=== PATIENT | female | born 1970 | race Caucasian/White ===

== ENCOUNTER 2019-11-12 08:08 | Emergency (ER) | payer OTHER ==
[~2019-11-12] VITALS: Ht 160 cm; Wt 41.5 kg
[2019-11-12 08:15] VITALS: BP 108/73
[2019-11-12] MEDS ORDERED: ALBU18HF2 INH (09:04)
== END 2019-11-12 09:22 | disposition home or self-care (01) ==
LOC: ER 08:09
DX: K04.7 Periapical abscess without sinus (principal); K02.9 Dental caries, unspecified; J45.909 Unspecified asthma, uncomplicated; I49.8 Other specified cardiac arrhythmias; F17.200 Nicotine dependence, unspecified, uncomplicated
CPT/HCPCS: 93005; 99283

== ENCOUNTER 2020-02-29 20:31 | Emergency (ER) | payer OTHER ==
[~2020-02-29] VITALS: Ht 157.5 cm; Wt 45.5 kg
[~2020-02-29 20:31] MED LIST: ALBU18HF2 INH
[2020-02-29 21:17] LABS: BASOPHILS # (AUTO) 0.2 X10'3 (0-0.2); BASOPHILS % (AUTO) 1.2 % (0-1); EOSINOPHILS # (AUTO) 0.5 X10'3 (0-0.9); EOSINOPHILS % (AUTO) 3.4 % (0-6); HEMOGLOBIN 11.8 g/dl (12.0-16.0); LYMPHOCYTES # (AUTO) 2.2 X10'3 (1.1-4.8); LYMPHOCYTES % (AUTO) 15.6 % (21-51); MEAN CORPUSCULAR HGB CONC 32.9 g/dL (33.0-36.5); MEAN CORPUSCULAR VOLUME 91.1 FL (78-98); MEAN PLATELET VOLUME 6.7 FL (7.4-10.4); MONOCYTES # (AUTO) 1.1 X10'3 (0-0.9); MONOCYTES % (AUTO) 8.3 % (2-12); NEUTROPHILS # (AUTO) 9.8 X10'3 (1.8-7.7); NEUTROPHILS % (AUTO) 71.5 % (42-75); PLATELET COUNT 364 X10'3 (140-440); RED BLOOD COUNT 3.95 X10'6 (4.20-5.60); RED CELL DISTRIBUTION WIDTH 13.7 % (11.5-14.5); WHITE BLOOD COUNT 13.8 X10'3 (4.5-11.0)
[2020-02-29 21:33] LABS: ALANINE AMINOTRANSFERASE 20 U/L (12-78); ALBUMIN 3.4 G/DL (3.4-5.0); ALBUMIN/GLOBULIN RATIO 0.9 (1.1-1.5); ALKALINE PHOSPHATASE 65 IU/L (46-116); ANION GAP 8 (8-16); ASPARTATE AMINO TRANSFERASE 19 U/L (10-37); BILIRUBIN,TOTAL 0.4 MG/DL (0.1-1.0); BLOOD UREA NITROGEN 7 MG/DL (7-18); BUN/CREATININE RATIO 8.1 (6.6-38.0); CALCIUM 8.7 MG/DL (8.5-10.1); CHLORIDE 106 MMOL/L (99-107); CREATININE 0.86 MG/DL (0.40-0.90); GLUCOSE 109 MG/DL (70-104); POTASSIUM 3.8 MMOL/L (3.5-5.1); SODIUM 140 MMOL/L (135-145); TOTAL CARBON DIOXIDE 26.3 MMOL/L (24-32); eGFR 70 ML/MIN
[2020-02-29] MEDS ORDERED: methylPREDNISolone sod succ 125mg/2ml vial IV ONE (23:15)
[2020-02-29] MEDS ORDERED: montelukast 10mg tablet PO SCH (23:15)
[2020-02-29] MEDS ORDERED: ipratropium/albuterol 3ml nebule NEB ONE (23:15)
[2020-02-29] MEDS ORDERED: PRED20TA PO (23:54)
[2020-02-29] MEDS ORDERED: ALBU6.7H9 INH (23:59)
[2020-03-01 00:13] VITALS: BP 101/76
== END 2020-03-01 00:14 | disposition home or self-care (01) ==
LOC: ER 20:33
DX: J45.909 Unspecified asthma, uncomplicated (principal); R05 Cough; Z20.828 Contact with and (suspected) exposure to other viral communicable diseases; Z79.899 Other long term (current) drug therapy
CPT/HCPCS: 36415; 71045; 80053; 85025; 94640; 96374; 99284; J2930; 94760

== ENCOUNTER 2020-06-24 15:54 | Emergency (ER) | payer BC ==
[~2020-06-24] VITALS: Ht 157.5 cm; Wt 43.2 kg
[~2020-06-24 15:54] MED LIST changes: +ALBU6.7H9 INH
[2020-06-24 16:00] VITALS: BP 115/71
== END 2020-06-24 19:03 | disposition left against medical advice (07) ==
LOC: ER 15:55
DX: R51.9 Headache, unspecified (principal); Z53.21 Procedure and treatment not carried out due to patient leaving prior to being seen by health care provider

== ENCOUNTER 2020-06-29 05:12 | Emergency (ER) | payer BC ==
[~2020-06-29] VITALS: Ht 157.5 cm; Wt 43.2 kg
[2020-06-29 05:20] VITALS: BP 130/73
[2020-06-29] MEDS ORDERED: SULF1TAB49 PO (06:13)
[2020-06-29] MEDS ORDERED: sulfamethoxazole/trimethoprim DS (800/160mg) tablet PO ONE (06:15)
== END 2020-06-29 06:55 | disposition home or self-care (01) ==
LOC: ER 05:13
DX: L03.211 Cellulitis of face (principal); J45.909 Unspecified asthma, uncomplicated; F17.200 Nicotine dependence, unspecified, uncomplicated; Z79.2 Long term (current) use of antibiotics; Z79.899 Other long term (current) drug therapy
CPT/HCPCS: 99283

== ENCOUNTER 2020-10-19 22:43 | Emergency (ER) | payer BC ==
[~2020-10-19] VITALS: Ht 157.5 cm; Wt 43.2 kg
[2020-10-19 23:05] VITALS: BP 104/69
[2020-10-20] MEDS ORDERED: HYDR-3686 PO (00:48)
[2020-10-20] MEDS ORDERED: SULF1TAB49 PO (00:48)
[2020-10-20] MEDS ORDERED: BETA15CR4 TOP (00:48)
[2020-10-20] MEDS ORDERED: PRED20TA PO (00:48)
[2020-10-20] MEDS ORDERED: sulfamethoxazole/trimethoprim DS (800/160mg) tablet PO ONE (00:50)
[2020-10-20] MEDS ORDERED: dexamethasone 4mg tablet PO ONE (00:50)
== END 2020-10-20 01:06 | disposition home or self-care (01) ==
LOC: ER 22:44 → EEVIPCON 22:44 → ER 10-20 01:06
DX: L03.211 Cellulitis of face (principal); J45.909 Unspecified asthma, uncomplicated; Z79.899 Other long term (current) drug therapy
CPT/HCPCS: 99283

== ENCOUNTER 2020-12-19 15:06 | Outpatient (CLI) | payer BC ==
[~2020-12-19 15:06] MED LIST changes: +BETA15CR4 TOP
[2020-12-19 15:45] LABS: BASOPHILS # (AUTO) 0.1 X10'3 (0-0.2); BASOPHILS % (AUTO) 0.9 % (0-1); EOSINOPHILS # (AUTO) 0.5 X10'3 (0-0.9); EOSINOPHILS % (AUTO) 4.4 % (0-6); HEMATOCRIT 38.5 % (35.0-45.0); HEMOGLOBIN 12.7 g/dl (12.0-16.0); LYMPHOCYTES # (AUTO) 2.1 X10'3 (1.1-4.8); LYMPHOCYTES % (AUTO) 17.8 % (21-51); MEAN CORPUSCULAR HEMOGLOBIN 29.8 PG (27.0-31.0); MEAN CORPUSCULAR HGB CONC 32.9 g/dL (33.0-36.5); MEAN CORPUSCULAR VOLUME 90.5 FL (78-98); MONOCYTES # (AUTO) 1.1 X10'3 (0-0.9); MONOCYTES % (AUTO) 9.2 % (2-12); NEUTROPHILS # (AUTO) 8.1 X10'3 (1.8-7.7); NEUTROPHILS % (AUTO) 67.7 % (42-75); PLATELET COUNT 396 X10'3 (140-440); RED BLOOD COUNT 4.25 X10'6 (4.20-5.60); RED CELL DISTRIBUTION WIDTH 14.3 % (11.5-14.5); WHITE BLOOD COUNT 11.9 X10'3 (4.5-11.0)
[2020-12-19 15:48] LABS: CLARITY,URINE SLIGHTLY CLOUDY (Clear); COLOR,URINE YELLOW (Yellow); GLUCOSE, URINE NEGATIVE (Neg); KETONES,URINE TRACE mg/dl (Neg); LEUKOCYTE ESTERASE ,URINE TRACE (Neg); NITRITES, URINE NEGATIVE (Neg); OCCULT BLOOD,URINE NEGATIVE (Neg); PROTEIN,URINE NEGATIVE (Neg); UROBILINOGEN,URINE 0.2 E.U/dL (0.2-1.0)
[2020-12-19 16:08] LABS: CHLORIDE 101 MMOL/L (99-107); GLUCOSE 97 MG/DL (70-104); POTASSIUM 3.6 MMOL/L (3.5-5.1); SODIUM 140 MMOL/L (135-145); TOTAL CARBON DIOXIDE 29.3 MMOL/L (24-32)
[2020-12-19 16:09] LABS: ALANINE AMINOTRANSFERASE 25 U/L (12-78); ALBUMIN 3.6 G/DL (3.4-5.0); ALKALINE PHOSPHATASE 72 IU/L (46-116); ANION GAP 10 (8-16); ASPARTATE AMINO TRANSFERASE 26 U/L (10-37); BILIRUBIN,TOTAL 0.3 MG/DL (0.1-1.0); BLOOD UREA NITROGEN 13 MG/DL (7-18); BUN/CREATININE RATIO 15.1 (6.6-38.0); CALCIUM 9.4 MG/DL (8.5-10.1); CHOL/HDL RATIO 2.4 (0.00-4.99); CHOLESTEROL 246 MG/DL (0-200); CREATININE 0.86 MG/DL (0.40-0.90); HDL CHOLESTEROL 104 MG/DL (35-60); LDL CHOLESTEROL 127 MG/DL (50-100); TOTAL PROTEIN 7.1 G/DL (6.4-8.2); TRIGLYCERIDES 65 MG/DL (20-135); eGFR 70 ML/MIN
[2020-12-19 16:20] LABS: BACTERIA,URINE 1+ /HPF (Neg); RBC,URINE 0-2 /HPF (0-2); SQUAMOUS EPITHELIAL CELL,UR MODERATE /LPF (FEW); UA COLLECTION TYPE CLN CATCH MIDSTREAM; WBC,URINE 0-4 /HPF (0-4)
== END 2020-12-19 23:59 | disposition home or self-care (01) ==
LOC: LAB 15:06
PROVIDERS: ATTEND Family Medicine
DX: Z00.00 Encounter for general adult medical examination without abnormal findings (principal)
CPT/HCPCS: 36415; 80053; 80061; 81001; 84439; 84443; 85025

== ENCOUNTER 2021-02-07 15:57 | Emergency (ER) | payer BC ==
[~2021-02-07] VITALS: Ht 165.1 cm; Wt 110.0 kg
[2021-02-07] MEDS ORDERED: normal saline 1000ml 1,000 ML IV ONE (16:50)
[2021-02-07 17:48] VITALS: BP 88/59
[2021-02-07 17:53] LABS: BASOPHILS # (AUTO) 0.2 X10'3 (0-0.2); EOSINOPHILS # (AUTO) 0.4 X10'3 (0-0.9); LYMPHOCYTES # (AUTO) 1.9 X10'3 (1.1-4.8); WHITE BLOOD COUNT 7.3 X10'3 (4.5-11.0)
[2021-02-07 17:55] LABS: BASOPHILS % (AUTO) 2.9 % (0-1); EOSINOPHILS % (AUTO) 5.6 % (0-6); HEMATOCRIT 34.7 % (35.0-45.0); LYMPHOCYTES % (AUTO) 26.3 % (21-51); MEAN CORPUSCULAR HGB CONC 34.5 g/dL (33.0-36.5); MEAN CORPUSCULAR VOLUME 89.9 FL (78-98); MONOCYTES # (AUTO) 0.8 X10'3 (0-0.9); MONOCYTES % (AUTO) 10.7 % (2-12); NEUTROPHILS % (AUTO) 54.5 % (42-75); PLATELET COUNT 386 X10'3 (140-440); RED BLOOD COUNT 3.86 X10'6 (4.20-5.60); RED CELL DISTRIBUTION WIDTH 14.7 % (11.5-14.5)
[2021-02-07 17:57] LABS: CLARITY,URINE CLEAR (Clear); COLOR,URINE YELLOW (Yellow); GLUCOSE, URINE NEGATIVE (Neg); KETONES,URINE TRACE mg/dl (Neg); LEUKOCYTE ESTERASE ,URINE NEGATIVE (Neg); NITRITES, URINE NEGATIVE (Neg); OCCULT BLOOD,URINE NEGATIVE (Neg); PROTEIN,URINE NEGATIVE (Neg); UROBILINOGEN,URINE 0.2 E.U/dL (0.2-1.0)
[2021-02-07 18:00] LABS: UA COLLECTION TYPE CLN CATCH MIDSTREAM
[2021-02-07 18:08] LABS: ALANINE AMINOTRANSFERASE 19 U/L (12-78); ALBUMIN 3.5 G/DL (3.4-5.0); ALBUMIN/GLOBULIN RATIO 1.1 (1.1-1.5); ALKALINE PHOSPHATASE 77 IU/L (46-116); ANION GAP 10 (8-16); ASPARTATE AMINO TRANSFERASE 20 U/L (10-37); BILIRUBIN,TOTAL 0.2 MG/DL (0.1-1.0); BLOOD UREA NITROGEN 6 MG/DL (7-18); CALCIUM 8.5 MG/DL (8.5-10.1); CHLORIDE 107 MMOL/L (99-107); CREATININE 0.86 MG/DL (0.40-0.90); GLUCOSE 94 MG/DL (70-104); POTASSIUM 3.8 MMOL/L (3.5-5.1); SODIUM 141 MMOL/L (135-145); TOTAL CARBON DIOXIDE 24.3 MMOL/L (24-32); TOTAL PROTEIN 6.7 G/DL (6.4-8.2); eGFR 70 ML/MIN
[2021-02-07 18:22] LABS: TOTAL CELLS COUNTED 100
[2021-02-07 18:25] LABS: BURR CELLS 1+; ELLIPTOCYTES 1+; PLATELET ESTIMATE NORMAL
== END 2021-02-07 19:17 | disposition home or self-care (01) ==
LOC: ER 15:58 → EEVIPCON 15:58 → ER 19:17
DX: E86.0 Dehydration (principal); R11.2 Nausea with vomiting, unspecified; R06.02 Shortness of breath; R51.9 Headache, unspecified; R42 Dizziness and giddiness; Z20.822 Contact with and (suspected) exposure to COVID-19; J45.909 Unspecified asthma, uncomplicated
CPT/HCPCS: 36415; 71045; 80053; 81003; 85007; 85025; 87635; 99284; C9803; J7030

== ENCOUNTER 2021-03-27 10:12 | Day surgery (SDC) | payer BC ==
[~2021-03-27] VITALS: Ht 157.5 cm; Wt 45.5 kg
[2021-03-27 10:35] VITALS: BP 125/37
[2021-03-27] MEDS ORDERED: fentaNYL/PF 50MCG/1 ML 2ML syringe ONE (10:43)
[2021-03-27] MEDS ORDERED: MIDAZolam 1 MG/ML 5ML VIAL ONE (10:43)
[2021-03-27] MEDS ORDERED: PLEC3TAB2 PO (11:26)
[2021-03-27] MEDS ORDERED: HYDR-3686 PO (11:26)
[2021-03-27] MEDS ORDERED: SENN25TA PO (11:26)
[2021-03-27] MEDS ORDERED: DIPH25CA83 PO (11:26)
[2021-03-27] MEDS ORDERED: MONT10TA32 PO (11:26)
[2021-03-27 12:26] VITALS: BP 89/63
[2021-03-27 12:36] VITALS: BP 88/64
[2021-03-27 12:46] VITALS: BP 86/61
[2021-03-27 12:56] VITALS: BP 83/56
== END 2021-03-27 12:57 | disposition home or self-care (01) ==
LOC: GI LAB 10:12
PROVIDERS: ATTEND Internal Medicine Gastroenterology
DX: K59.00 Constipation, unspecified (principal); K63.89 Other specified diseases of intestine; K64.8 Other hemorrhoids; J45.909 Unspecified asthma, uncomplicated; Z79.899 Other long term (current) drug therapy; F17.210 Nicotine dependence, cigarettes, uncomplicated
CPT/HCPCS: 45378; 99152; 99153; J2250; J3010; J7040; Z7512; A4620

== ENCOUNTER 2021-04-11 21:15 | Emergency (ER) | payer BC ==
[~2021-04-11] VITALS: Ht 157.5 cm; Wt 43.2 kg
[~2021-04-11 21:15] MED LIST changes: +DIPH25CA83 PO; +HYDR-3686 PO; +MONT10TA32 PO; +PLEC3TAB2 PO; +SENN25TA PO
[2021-04-11 21:24] VITALS: BP 90/65
== END 2021-04-11 22:40 | disposition home or self-care (01) ==
LOC: ER 21:15
DX: S61.212A Laceration without foreign body of right middle finger without damage to nail, initial encounter (principal); J45.909 Unspecified asthma, uncomplicated; Z79.899 Other long term (current) drug therapy; X58.XXXA Exposure to other specified factors, initial encounter; Y93.89 Activity, other specified; Y92.89 Other specified places as the place of occurrence of the external cause; Y99.8 Other external cause status
CPT/HCPCS: 99281

== ENCOUNTER 2021-07-25 17:24 | Emergency (ER) | payer OTHER ==
[~2021-07-25] VITALS: Ht 152.4 cm; Wt 43.0 kg
[~2021-07-25 17:24] MED LIST changes: +MONT-40 PO; -MONT10TA32 PO
[2021-07-25 17:35] VITALS: BP 95/65
[2021-07-25] MEDS ORDERED: PERM60CR19 TOP (19:14)
== END 2021-07-25 19:25 | disposition home or self-care (01) ==
LOC: ER 17:25
DX: L29.9 Pruritus, unspecified (principal); R21 Rash and other nonspecific skin eruption; J45.909 Unspecified asthma, uncomplicated; Z79.899 Other long term (current) drug therapy
CPT/HCPCS: 99283

== ENCOUNTER 2021-08-12 13:52 | Outpatient (CLI) | payer BC ==
[~2021-08-12 13:52] MED LIST changes: +PERM60CR19 TOP
[2021-08-12 14:44] LABS: CLARITY,URINE CLEAR (Clear); COLOR,URINE YELLOW (Yellow); EOSINOPHILS # (AUTO) 0.1 X10'3 (0-0.9); GLUCOSE, URINE NEGATIVE (Neg); HEMOGLOBIN 12.2 g/dl (12.0-16.0); KETONES,URINE NEGATIVE (Neg); LEUKOCYTE ESTERASE ,URINE NEGATIVE (Neg); LYMPHOCYTES # (AUTO) 1.6 X10'3 (1.1-4.8); NITRITES, URINE NEGATIVE (Neg); OCCULT BLOOD,URINE NEGATIVE (Neg); PROTEIN,URINE NEGATIVE (Neg); UROBILINOGEN,URINE 0.2 E.U/dL (0.2-1.0)
[2021-08-12 14:46] LABS: BASOPHILS # (AUTO) 0.1 X10'3 (0-0.2); BASOPHILS % (AUTO) 1.5 % (0-1); EOSINOPHILS % (AUTO) 2.1 % (0-6); HEMATOCRIT 36.7 % (35.0-45.0); MEAN CORPUSCULAR HEMOGLOBIN 30.6 PG (27.0-31.0); MEAN CORPUSCULAR HGB CONC 33.3 g/dL (33.0-36.5); MEAN PLATELET VOLUME 7.1 FL (7.4-10.4); MONOCYTES # (AUTO) 0.6 X10'3 (0-0.9); MONOCYTES % (AUTO) 8.2 % (2-12); NEUTROPHILS # (AUTO) 4.4 X10'3 (1.8-7.7); NEUTROPHILS % (AUTO) 64.2 % (42-75); PLATELET COUNT 418 X10'3 (140-440); RED BLOOD COUNT 3.99 X10'6 (4.20-5.60); RED CELL DISTRIBUTION WIDTH 14.4 % (11.5-14.5); WHITE BLOOD COUNT 6.8 X10'3 (4.5-11.0)
[2021-08-12 15:02] LABS: UA COLLECTION TYPE CLN CATCH MIDSTREAM
[2021-08-12 15:27] LABS: ALANINE AMINOTRANSFERASE 25 U/L (12-78); ALBUMIN 3.7 G/DL (3.4-5.0); ALBUMIN/GLOBULIN RATIO 1.2 (1.1-1.5); ALKALINE PHOSPHATASE 65 IU/L (46-116); ANION GAP 6 (8-16); ASPARTATE AMINO TRANSFERASE 20 U/L (10-37); BILIRUBIN,TOTAL 0.3 MG/DL (0.1-1.0); BLOOD UREA NITROGEN 4 MG/DL (7-18); BUN/CREATININE RATIO 5.6 (6.6-38.0); CALCIUM 8.9 MG/DL (8.5-10.1); CHLORIDE 105 MMOL/L (99-107); CHOL/HDL RATIO 2.2 (0.00-4.99); CHOLESTEROL 231 MG/DL (0-200); CREATININE 0.71 MG/DL (0.40-0.90); GLUCOSE 110 MG/DL (70-104); HDL CHOLESTEROL 103 MG/DL (35-60); LDL CHOLESTEROL 107 MG/DL (50-100); POTASSIUM 4.3 MMOL/L (3.5-5.1); SODIUM 139 MMOL/L (135-145); TOTAL CARBON DIOXIDE 27.6 MMOL/L (24-32); TOTAL PROTEIN 6.9 G/DL (6.4-8.2); TRIGLYCERIDES 34 MG/DL (20-135); eGFR 87 ML/MIN
== END 2021-08-12 23:59 | disposition home or self-care (01) ==
LOC: LAB 13:52
PROVIDERS: ATTEND Family Medicine
DX: Z13.220 Encounter for screening for lipoid disorders (principal); Z13.29 Encounter for screening for other suspected endocrine disorder; J44.9 Chronic obstructive pulmonary disease, unspecified
CPT/HCPCS: 36415; 80053; 80061; 81003; 82043; 83735; 84439; 84443; 85025

== ENCOUNTER 2021-09-09 09:24 | Outpatient (CLI) | payer BC ==
[~2021-09-09 09:24] MED LIST changes: -PERM60CR19 TOP; +iohexol 300mg/ml 100ml inj. ONE
== END 2021-09-09 23:59 | disposition home or self-care (01) ==
LOC: RAD 09:24
PROVIDERS: ATTEND Family Medicine
DX: K76.0 Fatty (change of) liver, not elsewhere classified (principal); K76.89 Other specified diseases of liver; I70.0 Atherosclerosis of aorta
CPT/HCPCS: 74177; Q9967

== ENCOUNTER 2021-09-09 09:34 | Outpatient (CLI) | payer BC ==
[~2021-09-09 09:34] MED LIST changes: -iohexol 300mg/ml 100ml inj. ONE
== END 2021-09-09 23:59 | disposition home or self-care (01) ==
LOC: LAB 09:34
PROVIDERS: ATTEND Family Medicine
DX: J43.9 Emphysema, unspecified (principal); R53.82 Chronic fatigue, unspecified; F17.200 Nicotine dependence, unspecified, uncomplicated
CPT/HCPCS: 36415; 71046; 86304

== ENCOUNTER 2021-12-16 20:33 | Emergency (ER) | payer BC ==
[~2021-12-16] VITALS: Ht 157.5 cm; Wt 36.4 kg
[2021-12-16 22:30] VITALS: BP 97/73
[2021-12-17 01:23] LABS: ALANINE AMINOTRANSFERASE 28 U/L (12-78); ALBUMIN 3.4 G/DL (3.4-5.0); ALBUMIN/GLOBULIN RATIO 1.1 (1.1-1.5); ALKALINE PHOSPHATASE 56 IU/L (46-116); ANION GAP 8 (8-16); ASPARTATE AMINO TRANSFERASE 29 U/L (10-37); BILIRUBIN,TOTAL 0.1 MG/DL (0.1-1.0); BLOOD UREA NITROGEN 11 MG/DL (7-18); BUN/CREATININE RATIO 15.5 (6.6-38.0); CALCIUM 8.1 MG/DL (8.5-10.1); CHLORIDE 107 MMOL/L (99-107); CREATININE 0.71 MG/DL (0.40-0.90); GLUCOSE 79 MG/DL (70-104); POTASSIUM 3.9 MMOL/L (3.5-5.1); SODIUM 142 MMOL/L (135-145); TOTAL CARBON DIOXIDE 27.3 MMOL/L (24-32); TOTAL PROTEIN 6.5 G/DL (6.4-8.2); eGFR 87 ML/MIN
[2021-12-17 01:25] LABS: BASOPHILS # (AUTO) 0.2 X10'3 (0-0.2); BASOPHILS % (AUTO) 2.3 % (0-1); EOSINOPHILS % (AUTO) 0.5 % (0-6); HEMOGLOBIN 11.2 g/dl (12.0-16.0); LYMPHOCYTES % (AUTO) 26.2 % (21-51); MEAN CORPUSCULAR HEMOGLOBIN 30.8 PG (27.0-31.0); MEAN CORPUSCULAR HGB CONC 32.9 g/dL (33.0-36.5); MEAN CORPUSCULAR VOLUME 93.6 FL (78-98); MEAN PLATELET VOLUME 6.3 FL (7.4-10.4); MONOCYTES # (AUTO) 0.4 X10'3 (0-0.9); MONOCYTES % (AUTO) 5.6 % (2-12); NEUTROPHILS # (AUTO) 4.9 X10'3 (1.8-7.7); NEUTROPHILS % (AUTO) 65.4 % (42-75); PLATELET COUNT 435 X10'3 (140-440); RED BLOOD COUNT 3.63 X10'6 (4.20-5.60); RED CELL DISTRIBUTION WIDTH 14.7 % (11.5-14.5); WHITE BLOOD COUNT 7.6 X10'3 (4.5-11.0)
[2021-12-17 01:28] LABS: ETHANOL 0.334 GM/DL (0.0-0.010)
== END 2021-12-17 00:55 | disposition home or self-care (01) ==
LOC: ER 20:33
DX: R07.89 Other chest pain (principal); Z20.822 Contact with and (suspected) exposure to COVID-19; R00.2 Palpitations; R06.02 Shortness of breath; R47.81 Slurred speech; R53.81 Other malaise; R50.9 Fever, unspecified; R51.9 Headache, unspecified; R19.7 Diarrhea, unspecified; R30.0 Dysuria; R11.2 Nausea with vomiting, unspecified; J45.909 Unspecified asthma, uncomplicated; Z72.89 Other problems related to lifestyle; Z86.19 Personal history of other infectious and parasitic diseases; Z79.899 Other long term (current) drug therapy
CPT/HCPCS: 36415; 71045; 80053; 80320; 84484; 85025; 87502; 87503; 87635; 93005; 99285; C9803

== ENCOUNTER 2022-01-27 13:30 | Outpatient (CLI) | payer BC ==
[2022-01-27 14:02] LABS: BASOPHILS # (AUTO) 0.1 X10'3 (0-0.2); BASOPHILS % (AUTO) 1.4 % (0-1); EOSINOPHILS % (AUTO) 0.7 % (0-6); HEMATOCRIT 32.2 % (35.0-45.0); LYMPHOCYTES % (AUTO) 18.4 % (21-51); MEAN CORPUSCULAR HGB CONC 34.3 g/dL (33.0-36.5); MEAN CORPUSCULAR VOLUME 93.5 FL (78-98); MEAN PLATELET VOLUME 7.1 FL (7.4-10.4); MONOCYTES # (AUTO) 0.3 X10'3 (0-0.9); MONOCYTES % (AUTO) 6.1 % (2-12); NEUTROPHILS # (AUTO) 4.1 X10'3 (1.8-7.7); NEUTROPHILS % (AUTO) 73.4 % (42-75); PLATELET COUNT 271 X10'3 (140-440); RED BLOOD COUNT 3.44 X10'6 (4.20-5.60); RED CELL DISTRIBUTION WIDTH 13.9 % (11.5-14.5); WHITE BLOOD COUNT 5.6 X10'3 (4.5-11.0)
[2022-01-27 14:21] LABS: CLARITY,URINE CLEAR (Clear); COLOR,URINE YELLOW (Yellow); GLUCOSE, URINE NEGATIVE (Neg); KETONES,URINE TRACE mg/dl (Neg); LEUKOCYTE ESTERASE ,URINE NEGATIVE (Neg); NITRITES, URINE NEGATIVE (Neg); OCCULT BLOOD,URINE NEGATIVE (Neg); PROTEIN,URINE NEGATIVE (Neg); UROBILINOGEN,URINE 0.2 E.U/dL (0.2-1.0)
[2022-01-27 14:24] LABS: UA COLLECTION TYPE CLN CATCH MIDSTREAM
[2022-01-27 14:26] LABS: ALANINE AMINOTRANSFERASE 44 U/L (12-78); ALBUMIN 3.4 G/DL (3.4-5.0); ALKALINE PHOSPHATASE 72 IU/L (46-116); ANION GAP 8 (8-16); ASPARTATE AMINO TRANSFERASE 41 U/L (10-37); BILIRUBIN,TOTAL 0.4 MG/DL (0.1-1.0); BLOOD UREA NITROGEN 5 MG/DL (7-18); BUN/CREATININE RATIO 7.8 (6.6-38.0); CALCIUM 8.4 MG/DL (8.5-10.1); CHLORIDE 94 MMOL/L (99-107); CHOLESTEROL 278 MG/DL (0-200); CREATININE 0.64 MG/DL (0.40-0.90); GLUCOSE 94 MG/DL (70-104); LDL CHOLESTEROL 73 MG/DL (50-100); MAGNESIUM 1.5 MG/DL (1.5-2.4); POTASSIUM 3.8 MMOL/L (3.5-5.1); SODIUM 126 MMOL/L (135-145); TOTAL CARBON DIOXIDE 24.3 MMOL/L (24-32); TOTAL PROTEIN 6.8 G/DL (6.4-8.2); TRIGLYCERIDES 50 MG/DL (20-135); eGFR > 90 ML/MIN
[2022-01-27 15:04] LABS: HDL CHOLESTEROL > 155 MG/DL (35-60)
== END 2022-01-27 23:59 | disposition home or self-care (01) ==
LOC: LAB 13:30
PROVIDERS: ATTEND Family Medicine
DX: Z13.29 Encounter for screening for other suspected endocrine disorder (principal); Z13.220 Encounter for screening for lipoid disorders; J44.9 Chronic obstructive pulmonary disease, unspecified
CPT/HCPCS: 36415; 80053; 80061; 81003; 82043; 83735; 84439; 84443; 85025

== ENCOUNTER 2022-07-23 20:21 | Emergency (ER) | payer BC ==
[~2022-07-23] VITALS: Ht 157.5 cm; Wt 40.0 kg
[~2022-07-23 20:21] MED LIST changes: +ALBU6.7H14 INH; -ALBU6.7H9 INH
[2022-07-23] MEDS ORDERED: normal saline 1000ml 1,000 ML IV ONE (22:05)
[2022-07-23 22:29] LABS: BASOPHILS # (AUTO) 0.2 X10'3 (0-0.2); BASOPHILS % (AUTO) 1.4 % (0-1); EOSINOPHILS # (AUTO) 0.2 X10'3 (0-0.9); EOSINOPHILS % (AUTO) 1.4 % (0-6); HEMATOCRIT 32.5 % (35.0-45.0); HEMOGLOBIN 10.8 g/dl (12.0-16.0); LYMPHOCYTES # (AUTO) 2.4 X10'3 (1.1-4.8); LYMPHOCYTES % (AUTO) 22.1 % (21-51); MEAN CORPUSCULAR HEMOGLOBIN 31.2 PG (27.0-31.0); MEAN CORPUSCULAR HGB CONC 33.2 g/dL (33.0-36.5); MEAN CORPUSCULAR VOLUME 93.8 FL (78-98); MEAN PLATELET VOLUME 6.6 FL (7.4-10.4); MONOCYTES # (AUTO) 1.1 X10'3 (0-0.9); MONOCYTES % (AUTO) 10.4 % (2-12); NEUTROPHILS % (AUTO) 64.7 % (42-75); PLATELET COUNT 263 X10'3 (140-440); RED BLOOD COUNT 3.46 X10'6 (4.20-5.60); RED CELL DISTRIBUTION WIDTH 14.8 % (11.5-14.5); WHITE BLOOD COUNT 10.9 X10'3 (4.5-11.0)
[2022-07-23 22:44] LABS: ALANINE AMINOTRANSFERASE 36 U/L (12-78); ALBUMIN 3.7 G/DL (3.4-5.0); ALBUMIN/GLOBULIN RATIO 1.4 (1.1-1.5); ALKALINE PHOSPHATASE 69 IU/L (46-116); ANION GAP 7 (8-16); ASPARTATE AMINO TRANSFERASE 45 U/L (10-37); BILIRUBIN,TOTAL 0.6 MG/DL (0.1-1.0); BLOOD UREA NITROGEN 8 MG/DL (7-18); BUN/CREATININE RATIO 9.6 (6.6-38.0); CHLORIDE 99 MMOL/L (99-107); CREATININE 0.83 MG/DL (0.40-0.90); GLUCOSE 130 MG/DL (70-104); LIPASE 174 U/L (73-393); POTASSIUM 3.1 MMOL/L (3.5-5.1); SODIUM 134 MMOL/L (135-145); TOTAL CARBON DIOXIDE 28.4 MMOL/L (24-32); TOTAL PROTEIN 6.4 G/DL (6.4-8.2); eGFR 72 ML/MIN
--- NOTE | 2022-07-23 23:00 | NUR ---
unable to obtain urine at this time.
[2022-07-24 00:12] LABS: URINE HCG NEGATIVE (NEG)
[2022-07-24 00:15] LABS: CLARITY,URINE CLEAR (Clear); COLOR,URINE YELLOW (Yellow); GLUCOSE, URINE NEGATIVE (Neg); KETONES,URINE NEGATIVE (Neg); LEUKOCYTE ESTERASE ,URINE NEGATIVE (Neg); NITRITES, URINE NEGATIVE (Neg); OCCULT BLOOD,URINE NEGATIVE (Neg); PROTEIN,URINE NEGATIVE (Neg); UROBILINOGEN,URINE 0.2 E.U/dL (0.2-1.0)
[2022-07-24 00:19] LABS: UA COLLECTION TYPE CLN CATCH MIDSTREAM
[2022-07-24] MEDS ORDERED: POTASSIUM BICARB 20meq eff tab 20 MEQ TABLET.EFF PO ONE (01:05)
[2022-07-24 01:11] LABS: ETHANOL < 0.010 GM/DL (0.0-0.010)
[2022-07-24 01:53] VITALS: BP 112/60
== END 2022-07-24 01:55 | disposition home or self-care (01) ==
LOC: ER 20:22 → EEVIPCON 20:22 → ER 07-24 01:55
DX: E87.6 Hypokalemia (principal); Z20.822 Contact with and (suspected) exposure to COVID-19; R11.2 Nausea with vomiting, unspecified; R42 Dizziness and giddiness; R19.7 Diarrhea, unspecified; J45.909 Unspecified asthma, uncomplicated; F41.9 Anxiety disorder, unspecified; Z86.2 Personal history of diseases of the blood and blood-forming organs and certain disorders involving the immune mechanism; Z72.89 Other problems related to lifestyle; Z79.899 Other long term (current) drug therapy
CPT/HCPCS: 36415; 80053; 80320; 81003; 81025; 83690; 85025; 87502; 87503; 87635; 93005; 96360; 96361; 99284; C9803; J7030

== ENCOUNTER 2022-09-12 18:30 | Inpatient (IN) | payer BC ==
[~2022-09-12] VITALS: Ht 157.5 cm; Wt 40.9 kg
[2022-09-12 18:49] LABS: HEMATOCRIT 35.8 % (35.0-45.0); MEAN CORPUSCULAR HEMOGLOBIN 31.1 PG (27.0-31.0); MEAN PLATELET VOLUME 6.2 FL (7.4-10.4); WHITE BLOOD COUNT 9.4 X10'3 (4.5-11.0)
[2022-09-12] MEDS ORDERED: LORazepam 2 mg/ml vial IV ONE ×2 (18:50→20:35)
[2022-09-12] MEDS ORDERED: ondansetron/PF 4mg/2ml inj IV ONE (18:50)
[2022-09-12 18:51] LABS: BASOPHILS % (AUTO) 0.2 % (0-1); EOSINOPHILS % (AUTO) 0.3 % (0-6); HEMOGLOBIN 11.7 g/dl (12.0-16.0); LYMPHOCYTES # (AUTO) 0.9 X10'3 (1.1-4.8); LYMPHOCYTES % (AUTO) 9.2 % (21-51); MEAN CORPUSCULAR HGB CONC 32.8 g/dL (33.0-36.5); MEAN CORPUSCULAR VOLUME 94.8 FL (78-98); MONOCYTES # (AUTO) 1.1 X10'3 (0-0.9); MONOCYTES % (AUTO) 11.5 % (2-12); NEUTROPHILS # (AUTO) 7.4 X10'3 (1.8-7.7); NEUTROPHILS % (AUTO) 78.8 % (42-75); PLATELET COUNT 513 X10'3 (140-440); RED BLOOD COUNT 3.77 X10'6 (4.20-5.60); RED CELL DISTRIBUTION WIDTH 15.1 % (11.5-14.5)
[2022-09-12 19:10] LABS: ALANINE AMINOTRANSFERASE 30 U/L (12-78); ALBUMIN 3.8 G/DL (3.4-5.0); ALBUMIN/GLOBULIN RATIO 1.2 (1.1-1.5); ALKALINE PHOSPHATASE 80 IU/L (46-116); ANION GAP 15 (8-16); ASPARTATE AMINO TRANSFERASE 32 U/L (10-37); BILIRUBIN,TOTAL 0.4 MG/DL (0.1-1.0); BLOOD UREA NITROGEN 10 MG/DL (7-18); BUN/CREATININE RATIO 10.3 (6.6-38.0); CHLORIDE 101 MMOL/L (99-107); CREATININE 0.97 MG/DL (0.40-0.90); GLUCOSE 126 MG/DL (70-104); POTASSIUM 3.1 MMOL/L (3.5-5.1); SODIUM 137 MMOL/L (135-145); TOTAL CARBON DIOXIDE 21.2 MMOL/L (24-32); eGFR 60 ML/MIN
[2022-09-12 19:47] LABS: ETHANOL < 0.010 GM/DL (0.0-0.010)
[2022-09-12 20:06] LABS: URINE AMPHETAMINE SCREEN NEGATIVE (Neg); URINE BARBITUATE SCREEN NEGATIVE (Neg); URINE BENZODIAZEPINES SCREEN NEGATIVE (Neg); URINE COCAINE SCREEN NEGATIVE (Neg); URINE METHADONE SCREEN NEGATIVE (Neg); URINE OPIATE SCREEN NEGATIVE (Neg); URINE PHENCYCLIDINE SCREEN NEGATIVE (Neg)
[2022-09-12] MEDS ORDERED: enoxaparin 100mg/ml syringe SUBCUT ONE (20:15)
[2022-09-12] MEDS ORDERED: aspirin 81mg tab.chew PO ONE (20:15)
[2022-09-12] MEDS ORDERED: POTASSIUM BICARB 20meq eff tab 20 MEQ TABLET.EFF PO ONE (20:35)
[2022-09-12] MEDS ORDERED: magnesium oxide 400mg tablet PO ONE (20:35)
[2022-09-12 20:52] LABS: MAGNESIUM 1.3 MG/DL (1.5-2.4)
[2022-09-12] MEDS ORDERED: magnesium Cl slow-release 64mg tablet PO PRN (21:15)
[2022-09-12] MEDS ORDERED: ondansetron/PF 4mg/2ml inj IV PRN (21:15)
[2022-09-12] MEDS ORDERED: magnesium 4gm in 100ml NS 100 ML IV PRN (21:15)
[2022-09-12] MEDS ORDERED: mag hydrox/Alum hydrox/simeth 30ml oral suspension PO PRN (21:15)
[2022-09-12] MEDS ORDERED: acetaminophen 325mg tablet PO PRN (21:15)
[2022-09-12] MEDS ORDERED: potassium Cl 20 mEq SR tablet PO PRN ×2 (21:15)
[2022-09-12] MEDS ORDERED: potassium Cl 40MEQ/1/2NS 520ml 520 ML IV PRN (21:15)
[2022-09-12] MEDS ORDERED: magnesium hydroxide 30ml (MOM) UD suspension PO PRN (21:15)
[2022-09-13] VITALS (8 sets, daily range): BP systolic 88–117; BP diastolic 64–84
--- NOTE | 2022-09-13 00:19 | NUR ---
Patient in room CATE 358. I have received report from SHIVANI Bonilla and had the opportunity to ask questions and assume patient care.
[2022-09-13] MEDS ORDERED: ALBU90AE2 INH (00:35)
[2022-09-13] MEDS ORDERED: TRAZ-251 PO (00:39)
[2022-09-13] MEDS ORDERED: FLUO-1 PO (00:39)
[2022-09-13] MEDS ORDERED: FLUT1BLS16 INH (00:39)
[2022-09-13] MEDS ORDERED: regadenoson 0.4mg/5ml syringe IV PRN (01:45)
[2022-09-13] MEDS ORDERED: metoprolol tartrate 1mg/ml inj IV PRN (01:45)
[2022-09-13] MEDS ORDERED: LORazepam 2 mg/ml vial IV PRN ×2 (01:45→04:55)
[2022-09-13] MEDS ORDERED: aminophylline 250mg/10ml inj. IV PRN (01:45)
[2022-09-13] MEDS ORDERED: nitroGLYCERIN 0.4mg SUBLingual tab SL PRN (01:45)
--- NOTE | 2022-09-13 06:39 | NUR ---
Problems reprioritized. Patient report given, questions answered & plan of care reviewed with SHIVANI Escobedo.
[2022-09-13 06:59] LABS: MAGNESIUM 1.4 MG/DL (1.5-2.4); POTASSIUM 3.6 MMOL/L (3.5-5.1)
--- NOTE | 2022-09-13 07:00 | NUR ---
Patient in room CATE 358. I have received report from SETH PARRISH and had the opportunity to ask questions and assume patient care.
[2022-09-13] MEDS ORDERED: docusate sod 100mg capsule PO SCH (08:00)
[2022-09-13] MEDS ORDERED: K and/or MAG REPLACEMENT MC SCH (08:00)
[2022-09-13] MEDS ORDERED: PERFLUTREN PROTEIN-A MICROSPHR (Optison) 0.22 MG/ML 3ML VIAL IV ONE (09:15)
[2022-09-13] MEDS ORDERED: magnesium 2GM in 50ml NS 50 ML IV ONE (09:15)
[2022-09-13] MEDS ORDERED: albuterol 2.5 MG/3 ML nebule NEB PRN ×2 (11:35→11:40)
[2022-09-13] MEDS ORDERED: diphenhydrAMINE 25mg capsule PO PRN (11:35)
--- NOTE | 2022-09-13 13:21 | NUR ---
Page Sent promotional table spacer PAGER ID: [phone] MESSAGE: [phone] VINNY DIAZ WANTED TO SEE YOU ABOUT HER RESULTS OR POSSIBLE DC? DARREN [id number]
--- NOTE | 2022-09-13 13:45 | NUR ---
Malnutrition Consult: Pt admit DX CP currently NPO pending echocardiogram today w/ first heart healthy diet meal to follow per EMR. 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 Noted hx heavy etoh per ER note; RD paged MD regarding routine thiamine, folic acid, MVI supplementation if agreeable. 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 Pt reports lowest wt 77 pounds last January has worked w/ PCP to return to UBW 90 pounds which is current scaled wt and consistent w/ prior reported wt hx in EMR. Pt reports has tried Ensures/ONS in past w/ success for wt gain is agreeable to Ensure coupons which RD provided in addition to peach smoothie TID[facility]-dietary notified. Pt requests peanut butter w/ crackers for snack since enjoys-dietary notified; RD provided verbal wt gain nutrition ed and encouraged pt to contact dietitian's office if further nutrition questions/concerns. Pt reports always small-framed at baseline; visible temporal wasting evident otherwise appears thin though no additional overt signs of wasting. Pt has normal strength, no edema/wounds, and stable wt hx currently UBW per report. Though pt certainly at risk for malnutrition given hx, given temporal wasting only criteria currently lacks minimum two malnutrition criteria. Will monitor for further nutrition intervention needs this admit. Addendum: 09/13/22 at [address] Amended: Links added.
[2022-09-13] MEDS ORDERED: LORA-268 PO (14:50)
[2022-09-13] MEDS ORDERED: POTA-207 PO (14:50)
[2022-09-13] MEDS ORDERED: MAGN250T29 PO (14:50)
--- NOTE | 2022-09-13 15:49 | NUR ---
Page Sent PAGER ID: [phone] MESSAGE: Trudy B EMILY, CAN YOU PLEASE CALL ME KATE ABOUT THE PTS MEDICAL NOTE. IT NEEDS TO BE FIXED WANT TO VERIFY WITH YOU. DARREN [id number]
--- NOTE | 2022-09-13 15:56 | NUR ---
Page Sent PAGER ID: [phone] MESSAGE: [phone] EMILY, I HAVE THE PT DC WE JUST NEED THE NOTE WE HAD WROTE EARLIER TO BE FIXED, I WANTED TO CONFRIM THIS IS OK. CAN YOU PLEASE GTE BACK TO ME THANKS! DARREN
--- NOTE | 2022-09-13 16:11 | NUR ---
PT IS STABLE FOR DC, PT SHOWED ME HER INHALER THAT SHE HAD GOT BACK FROM PHARMACY THAT WAS HER HOME MED BROUGHT IN, IV IS DC AND CANNULA IS INTACT, ALL DC INFO GONE OVER, ALL BELONGINGS TAKEN, PT WAS WRITTEN A DR NOTE FOR WORK, AND ALL MED ORDERS WERE SENT TO HER PHARMACY. SHE WAS WALKED TO THE ELEVATOR AND WAS LEAVING IN A PRIVATE VEHICLE.
[2022-09-13] MEDS ORDERED: magnesium Cl slow-release 64mg tablet PO SCH (20:00)
[2022-09-13] MEDS ORDERED: montelukast 10mg tablet PO SCH (21:00)
[2022-09-13] MEDS ORDERED: traZODone 50mg tablet PO SCH (21:00)
[2022-09-14] MEDS ORDERED: LORA-268 PO (00:30)
[2022-09-14] MEDS ORDERED: Fluticasone/Umeclidin/Vilanter (Trelegy Ellipta 200-62.5-25) PO SCH (08:00)
[2022-09-14] MEDS ORDERED: FLUoxetine 20mg capsule PO SCH (08:00)
== END 2022-09-13 16:54 | disposition home or self-care (01) | DRG 313 ==
LOC: ER 18:30 → ED HOLD 21:15 → SUR 3N 09-13 00:04
PROVIDERS: ADMIT Internal Medicine; ATTEND Family Medicine
PROC: 4A02XM4 Measurement of Cardiac Total Activity, External Approach (ICD-10-PCS; principal; 2022-09-13)
PROC: 3E033HZ Introduction of Radioactive Substance into Peripheral Vein, Percutaneous Approach (ICD-10-PCS; 2022-09-13)
DX: R07.9 Chest pain, unspecified (principal); E78.00 Pure hypercholesterolemia, unspecified; F41.9 Anxiety disorder, unspecified; F32.A Depression, unspecified; E87.6 Hypokalemia; J44.9 Chronic obstructive pulmonary disease, unspecified; Z82.49 Family history of ischemic heart disease and other diseases of the circulatory system; Z79.899 Other long term (current) drug therapy
CPT/HCPCS: 36415; 71045; 78452; 80053; 80305; 80320; 83735; 83880; 84132; 84439; 84443; 84480; 84484; 85025; 87081; 93005; 93017; 93306; 96374; 96375; 99285; A4615; A9500; G0378; J1650; J2060; J2405; J2785; J3475

== ENCOUNTER 2023-02-25 14:30 | Inpatient (IN) | payer BC ==
[~2023-02-25] VITALS: Ht 157.5 cm; Wt 41.8 kg
[~2023-02-25 14:30] MED LIST changes: -ALBU18HF2 INH; -ALBU6.7H14 INH; +ALBU90AE2 INH; -BETA15CR4 TOP; +FLUO-1 PO; +FLUT1BLS16 INH; -HYDR-3686 PO; +MAGN250T29 PO; -PLEC3TAB2 PO; -SENN25TA PO; +TRAZ-251 PO
[2023-02-25 18:00] VITALS: BP 104/67; PULSE 101; RESP 14; TEMP 98.1; O2SAT 100
--- NOTE | 2023-02-25 18:10 | NUR ---
Patient in room ORTHO 4009. I have received report from FAREED Kauffman and had the opportunity to ask questions and assume patient care.
--- NOTE | 2023-02-25 18:31 | NUR ---
Problems reprioritized. Patient report given, questions answered & plan of care reviewed with SHIVANI Ahumada.
[2023-02-25 20:00] VITALS: RESP 13; O2SAT 98
[2023-02-25] MEDS ORDERED: HYDROcodone/acetaminophen 5mg/325mg tablet PO PRN (21:15)
[2023-02-25] MEDS ORDERED: acetaminophen 325mg tablet PO PRN ×2 (21:15)
[2023-02-25] MEDS ORDERED: ondansetron/PF 4mg/2ml inj IV PRN (21:15)
[2023-02-25] MEDS ORDERED: HYDROcodone/acetaminophen 10/325mg tab PO PRN (21:15)
[2023-02-25] MEDS ORDERED: magnesium hydroxide 30ml (MOM) UD suspension PO PRN (21:15)
[2023-02-25] MEDS ORDERED: albuterol 2.5 MG/3 ML nebule NEB PRN (21:15)
[2023-02-25] MEDS ORDERED: potassium Cl 20 mEq SR tablet PO PRN (21:15)
[2023-02-25] MEDS ORDERED: magnesium 4gm in 100ml NS 100 ML IV PRN (21:15)
[2023-02-25] MEDS ORDERED: mag hydrox/Alum hydrox/simeth 30ml oral suspension PO PRN (21:15)
[2023-02-25] MEDS ORDERED: potassium Cl 40MEQ/1/2NS 520ml 520 ML IV PRN (21:15)
[2023-02-25] MEDS ORDERED: MAGN400T52 PO (21:52)
[2023-02-25] MEDS: linezolid 600mg tablet PO SCH (21:53)
[2023-02-25] MEDS: benzonatate 100mg capsule PO PRN (21:54)
[2023-02-25] MEDS: normal saline 1000ml 1,000 ML IV SCH (21:55)
[2023-02-25 22:00] VITALS: BP 114/64; PULSE 99; RESP 13; TEMP 100.3; O2SAT 98
[2023-02-25 22:27] VITALS: PULSE 113; RESP 16; O2SAT 99
[2023-02-25] MEDS: traZODone 50mg tablet PO SCH (22:34)
[2023-02-25] MEDS: ipratropium/albuterol 3ml nebule NEB PRN (23:07)
[2023-02-25 23:08] VITALS: PULSE 103; RESP 16; O2SAT 99
[2023-02-25 23:14] VITALS: PULSE 100; RESP 16
[2023-02-25] MEDS ORDERED: diphenhydrAMINE 25mg capsule PO PRN (23:35)
[2023-02-26] VITALS (9 sets, daily range): BP systolic 86–95; BP diastolic 53–64; PULSE 69–111; RESP 15–18; TEMP 97.2–99; O2SAT 94–99
[2023-02-26] MEDS: benzonatate 100mg capsule PO PRN (05:52)
[2023-02-26 06:17] LABS: BASOPHILS # (AUTO) 0.1 X10'3 (0-0.2); EOSINOPHILS # (AUTO) 0.1 X10'3 (0-0.9); HEMOGLOBIN 7.1 g/dl (12.0-16.0); LYMPHOCYTES # (AUTO) 1.3 X10'3 (1.1-4.8); LYMPHOCYTES % (AUTO) 7.1 % (21-51); NEUTROPHILS # (AUTO) 15.4 X10'3 (1.8-7.7); WHITE BLOOD COUNT 18.9 X10'3 (4.5-11.0)
[2023-02-26 06:21] LABS: BASOPHILS % (AUTO) 0.3 % (0-1); EOSINOPHILS % (AUTO) 0.3 % (0-6); MEAN CORPUSCULAR HEMOGLOBIN 29.7 PG (27.0-31.0); MEAN CORPUSCULAR HGB CONC 32.9 g/dL (33.0-36.5); MEAN CORPUSCULAR VOLUME 90.3 FL (78-98); MEAN PLATELET VOLUME 6.8 FL (7.4-10.4); MONOCYTES # (AUTO) 2.1 X10'3 (0-0.9); MONOCYTES % (AUTO) 11.1 % (2-12); NEUTROPHILS % (AUTO) 81.2 % (42-75); PLATELET COUNT 860 X10'3 (140-440); RED BLOOD COUNT 2.39 X10'6 (4.20-5.60); RED CELL DISTRIBUTION WIDTH 17.2 % (11.5-14.5)
[2023-02-26 06:25] LABS: HEMATOCRIT 21.6 % (35.0-45.0)
--- NOTE | 2023-02-26 06:25 | NUR ---
Problems reprioritized. Patient report given, questions answered & plan of care reviewed with FAREED Kauffman.
[2023-02-26 06:27] LABS: ALANINE AMINOTRANSFERASE 54 U/L (12-78); ALBUMIN 2.3 G/DL (3.4-5.0); ALBUMIN/GLOBULIN RATIO 0.6 (1.1-1.5); ALKALINE PHOSPHATASE 101 IU/L (46-116); ANION GAP 10 (8-16); ASPARTATE AMINO TRANSFERASE 40 U/L (10-37); BILIRUBIN,TOTAL 0.3 MG/DL (0.1-1.0); BLOOD UREA NITROGEN 6 MG/DL (7-18); CALCIUM 8.8 MG/DL (8.5-10.1); CHLORIDE 99 MMOL/L (99-107); CREATININE 0.75 MG/DL (0.40-0.90); GLUCOSE 100 MG/DL (70-104); MAGNESIUM 1.4 MG/DL (1.5-2.4); PHOSPHORUS 4.5 MG/DL (2.3-4.5); POTASSIUM 3.3 MMOL/L (3.5-5.1); SODIUM 135 MMOL/L (135-145); TOTAL CARBON DIOXIDE 26.3 MMOL/L (24-32); TOTAL PROTEIN 6.3 G/DL (6.4-8.2); eCRCL 58 ML/MIN; eGFR 81 ML/MIN
--- NOTE | 2023-02-26 06:43 | NUR ---
Patient in room ORTHO 4023. I have received report from SHIVANI Ahumada and had the opportunity to ask questions and assume patient care.
[2023-02-26 07:05] LABS: TOTAL CELLS COUNTED 100
[2023-02-26 07:06] LABS: ANISOCYTOSIS 1+; PLATELET ESTIMATE INCREASED; POIKILOCYTOSIS FEW
--- NOTE | 2023-02-26 07:06 | NUR ---
contacted nurse r/t H&H. No new orders at this time.
--- NOTE | 2023-02-26 07:06 | NUR ---
PAGER ID: [phone] MESSAGE: [id number] - [facility] 7.07/25.6. Please advise. Thank you - Jamari [phone]
[2023-02-26] MEDS: normal saline 1000ml 1,000 ML IV SCH ×2 (07:15→22:38)
[2023-02-26] MEDS ORDERED: docusate sod 100mg capsule PO SCH (08:00)
[2023-02-26] MEDS: nicotine 14mg patch - 24hr TD SCH (08:00)
[2023-02-26] MEDS ORDERED: ipratropium/albuterol 3ml nebule NEB SCH (08:00)
[2023-02-26] MEDS ORDERED: magnesium oxide 400mg tablet PO SCH (08:00)
[2023-02-26] MEDS ORDERED: budesonide 0.5mg/2ml UD nebule IH SCH (08:00)
[2023-02-26] MEDS: potassium Cl 20 mEq SR tablet PO PRN ×2 (08:23→21:35)
[2023-02-26] MEDS: folic acid 1mg tablet PO SCH (08:23)
[2023-02-26] MEDS: multivitamins, therapeutics tablet PO SCH (08:23)
[2023-02-26] MEDS: thiamine 100mg tablet PO SCH ×2 (08:23→21:36)
[2023-02-26] MEDS: heparin, porcine 5000 units/ml vial SQ SCH ×2 (08:32→21:38)
[2023-02-26] MEDS: linezolid 600mg tablet PO SCH ×2 (08:32→21:35)
[2023-02-26] MEDS: K and/or MAG REPLACEMENT MC SCH ×2 (08:33→20:00)
[2023-02-26] MEDS: FLUoxetine 20mg capsule PO SCH (08:33)
[2023-02-26] MEDS ORDERED: LORazepam 2 mg/ml vial IV PRN (12:00)
[2023-02-26] MEDS ORDERED: LORazepam 0.5 MG tablet PO PRN (12:00)
[2023-02-26] MEDS ORDERED: HYDROcodone/acetaminophen 10/325mg tab PO PRN (12:05)
[2023-02-26] MEDS ORDERED: HYDROcodone/acetaminophen 5mg/325mg tablet PO PRN (12:05)
--- NOTE | 2023-02-26 14:45 | NUR ---
Z[facility] consult: Pt admit for right lower lobe aspiration pneumonia and MSSA bacteremia per EMR. Pt seen at bedside this am and provided verbal/written low tyramine diet education. Pt present with a low BMI of 16.9 via scaled wt of 41.8kg (92 pounds) this admit. Per EMR pt seen prior on 09/13/22 with a lower wt of 40.91kg (90 pounds) and a BMI of 16.5. Pt appears to have an overall stable wt with slight wt increase this admit. Per prior RD note pt reports UBW of 90 pounds which is less than current scaled wt. Pt presented with nausea at bedside thus unable to obtain food preferences at this time. 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 Pt lacks a minimum of two malnutrition criteria at this time. Will continue to monitor. Addendum: 02/26/23 at [address] Amended: Links added.
[2023-02-26] MEDS ORDERED: ALPR0.255 PO (14:55)
[2023-02-26] MEDS ORDERED: HYDR-3686 PO (14:55)
[2023-02-26] MEDS: ipratropium/albuterol 3ml nebule NEB PRN (15:59)
[2023-02-26 16:50] LABS: BASOPHILS # (AUTO) 0.1 X10'3 (0-0.2); EOSINOPHILS # (AUTO) 0.1 X10'3 (0-0.9); MONOCYTES # (AUTO) 1.9 X10'3 (0-0.9); NEUTROPHILS # (AUTO) 16.1 X10'3 (1.8-7.7)
[2023-02-26 16:51] LABS: BASOPHILS % (AUTO) 0.5 % (0-1); EOSINOPHILS % (AUTO) 0.4 % (0-6); HEMATOCRIT 23.8 % (35.0-45.0); HEMOGLOBIN 7.9 g/dl (12.0-16.0); LYMPHOCYTES # (AUTO) 1.6 X10'3 (1.1-4.8); LYMPHOCYTES % (AUTO) 8.2 % (21-51); MEAN CORPUSCULAR HEMOGLOBIN 30.1 PG (27.0-31.0); MEAN CORPUSCULAR HGB CONC 33.4 g/dL (33.0-36.5); MEAN CORPUSCULAR VOLUME 90.3 FL (78-98); MEAN PLATELET VOLUME 6.8 FL (7.4-10.4); MONOCYTES % (AUTO) 9.7 % (2-12); NEUTROPHILS % (AUTO) 81.2 % (42-75); PLATELET COUNT 990 X10'3 (140-440); RED BLOOD COUNT 2.63 X10'6 (4.20-5.60); RED CELL DISTRIBUTION WIDTH 17.3 % (11.5-14.5); WHITE BLOOD COUNT 19.8 X10'3 (4.5-11.0)
--- NOTE | 2023-02-26 17:05 | NUR ---
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
--- NOTE | 2023-02-26 18:26 | NUR ---
Problems reprioritized. Patient report given, questions answered & plan of care reviewed with SHIVANI Mitchell.
[2023-02-26 19:33] LABS: OCCULT BLOOD STOOL NEGATIVE (Neg)
[2023-02-26] MEDS ORDERED: traZODone 50mg tablet PO SCH (21:00)
[2023-02-26] MEDS ORDERED: montelukast 10mg tablet PO SCH (21:00)
[2023-02-26] MEDS: traZODone 50mg tablet PO SCH (23:12)
[2023-02-27] VITALS (7 sets, daily range): BP systolic 94–111; BP diastolic 51–74; PULSE 75–95; RESP 16; TEMP 97.5–98.2; O2SAT 94
--- NOTE | 2023-02-27 06:40 | NUR ---
Patient in room ORTHO 4023. I have received report from SHIVANI Mitchell and had the opportunity to ask questions and assume patient care.
--- NOTE | 2023-02-27 06:42 | NUR ---
Problems reprioritized. Patient report given, questions answered & plan of care reviewed with JENNIFER PARRISH.
[2023-02-27 07:04] LABS: BASOPHILS # (AUTO) 0.1 X10'3 (0-0.2); EOSINOPHILS # (AUTO) 0.1 X10'3 (0-0.9); MEAN CORPUSCULAR HEMOGLOBIN 29.8 PG (27.0-31.0)
[2023-02-27 07:06] LABS: BASOPHILS % (AUTO) 0.7 % (0-1); EOSINOPHILS % (AUTO) 0.5 % (0-6); LYMPHOCYTES # (AUTO) 1.4 X10'3 (1.1-4.8); LYMPHOCYTES % (AUTO) 8.9 % (21-51); MEAN CORPUSCULAR HGB CONC 32.7 g/dL (33.0-36.5); MEAN CORPUSCULAR VOLUME 91.3 FL (78-98); MEAN PLATELET VOLUME 6.9 FL (7.4-10.4); MONOCYTES # (AUTO) 1.6 X10'3 (0-0.9); MONOCYTES % (AUTO) 10.6 % (2-12); NEUTROPHILS # (AUTO) 12.2 X10'3 (1.8-7.7); NEUTROPHILS % (AUTO) 79.3 % (42-75); PLATELET COUNT 992 X10'3 (140-440); RED BLOOD COUNT 2.36 X10'6 (4.20-5.60); RED CELL DISTRIBUTION WIDTH 17.3 % (11.5-14.5); WHITE BLOOD COUNT 15.4 X10'3 (4.5-11.0)
[2023-02-27] MEDS: thiamine 100mg tablet PO SCH (07:17)
[2023-02-27] MEDS: benzonatate 100mg capsule PO PRN (07:17)
[2023-02-27] MEDS: FLUoxetine 20mg capsule PO SCH (07:17)
[2023-02-27] MEDS: linezolid 600mg tablet PO SCH (07:17)
[2023-02-27] MEDS: multivitamins, therapeutics tablet PO SCH (07:17)
[2023-02-27] MEDS: folic acid 1mg tablet PO SCH (07:18)
[2023-02-27] MEDS: heparin, porcine 5000 units/ml vial SQ SCH (07:18)
[2023-02-27 07:22] LABS: ALANINE AMINOTRANSFERASE 51 U/L (12-78); ALBUMIN 2.2 G/DL (3.4-5.0); ALBUMIN/GLOBULIN RATIO 0.5 (1.1-1.5); ALKALINE PHOSPHATASE 89 IU/L (46-116); ANION GAP 7 (8-16); ASPARTATE AMINO TRANSFERASE 40 U/L (10-37); BILIRUBIN,TOTAL 0.2 MG/DL (0.1-1.0); BLOOD UREA NITROGEN 5 MG/DL (7-18); CHLORIDE 105 MMOL/L (99-107); CREATININE 0.71 MG/DL (0.40-0.90); GLUCOSE 93 MG/DL (70-104); MAGNESIUM 2.7 MG/DL (1.5-2.4); SODIUM 139 MMOL/L (135-145); TOTAL CARBON DIOXIDE 27.1 MMOL/L (24-32); TOTAL PROTEIN 6.3 G/DL (6.4-8.2); eCRCL 61 ML/MIN; eGFR 86 ML/MIN
[2023-02-27 07:28] LABS: HEMATOCRIT 21.5 % (35.0-45.0)
[2023-02-27] MEDS: nicotine 14mg patch - 24hr TD SCH (08:00)
[2023-02-27] MEDS: K and/or MAG REPLACEMENT MC SCH (08:00)
[2023-02-27 09:14] LABS: ANISOCYTOSIS 1+; PLATELET ESTIMATE INCREASED; TOTAL CELLS COUNTED 100
[2023-02-27 09:15] LABS: POIKILOCYTOSIS 1+
[2023-02-27] MEDS ORDERED: LINE600T11 PO (12:52)
[2023-02-27 14:54] LABS: % IRON SATURATION 8 % (11-46); IRON 13 UG/DL (49-151); TOTAL IRON BINDING CAPACITY 168 UG/DL (259-388)
--- NOTE | 2023-02-27 15:24 | NUR ---
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
--- NOTE | 2023-02-27 18:07 | NUR ---
Pt stable for discharge. Patient signed all d/c paperwork. RN removed midline prior to discharge. Patient left with all belongings. Patient was wheeled out of facility in a wheelchair with the assistance of 1 staff member. Patient left in a cab to go home. D/c at 1759.
== END 2023-02-27 17:59 | disposition home or self-care (01) | DRG 871 ==
LOC: ORTHO 4S 14:30
PROVIDERS: ADMIT Internal Medicine; ATTEND Internal Medicine
PROC: 30233N1 Transfusion of Nonautologous Red Blood Cells into Peripheral Vein, Percutaneous Approach (ICD-10-PCS; principal; 2023-02-27)
DX: A41.01 Sepsis due to Methicillin susceptible Staphylococcus aureus (principal); E43 Unspecified severe protein-calorie malnutrition; J69.0 Pneumonitis due to inhalation of food and vomit; Z68.1 Body mass index [BMI] 19.9 or less, adult; Z20.822 Contact with and (suspected) exposure to COVID-19; D50.9 Iron deficiency anemia, unspecified; F41.9 Anxiety disorder, unspecified; F10.20 Alcohol dependence, uncomplicated; F17.210 Nicotine dependence, cigarettes, uncomplicated; J44.9 Chronic obstructive pulmonary disease, unspecified; E83.39 Other disorders of phosphorus metabolism; F32.A Depression, unspecified; E78.5 Hyperlipidemia, unspecified; Z79.899 Other long term (current) drug therapy; Z81.1 Family history of alcohol abuse and dependence; Z86.59 Personal history of other mental and behavioral disorders; Z71.6 Tobacco abuse counseling
CPT/HCPCS: 36415; 36430; 80053; 82272; 83540; 83550; 83605; 83735; 84100; 84145; 85007; 85025; 86885; 86900; 86901; 86920; 87040; 87081; 87811; 94640; 94760; G0378; J1644; J2060; J3475; J7030; J7040; P9016

== ENCOUNTER 2023-04-10 11:52 | Emergency (ER) | payer BC, MEDICAID ==
[~2023-04-10] VITALS: Ht 157.5 cm; Wt 43.0 kg
[~2023-04-10 11:52] MED LIST changes: +ALPR0.255 PO; +HYDR-3686 PO; -MAGN250T29 PO; +MAGN400T52 PO
--- NOTE | 2023-04-10 12:47 | NUR ---
PT PRESENTS TO THE ER FOR LEFT ANKLE PAIN AFTER JOGGING. PT STATES " I FELT IT ADÁN CRUNCH INTO ITSEL Addendum: 04/10/23 at 1247 by ELVIA PT PRESENTS TO THE ER FOR LEFT ANKLE PAIN AFTER JOGGING. PT STATES SHE FELT A CRUNCH. PT STATES AROUND 2 WEEKS AGO. PT STATES " IT HURTS AT REST". PT AMBULATORY SINCE INJURY. PT CMS INTACT.
[2023-04-10] MEDS ORDERED: ketorolac trometh inj. 60 MG/2 ML VIAL IM ONE (13:15)
[2023-04-10 13:55] VITALS: BP 98/70; PULSE 83; RESP 16; TEMP 97.9; O2SAT 98
--- NOTE | 2023-04-10 15:54 | NUR ---
AGREE WITH [facility] GENERAL ASSESSMENT. PT IN STABLE CONDITION.
== END 2023-04-10 15:58 | disposition home or self-care (01) ==
LOC: ER 11:53
DX: S93.492A Sprain of other ligament of left ankle, initial encounter (principal); X58.XXXA Exposure to other specified factors, initial encounter; Y93.89 Activity, other specified; Y92.89 Other specified places as the place of occurrence of the external cause; Y99.8 Other external cause status
CPT/HCPCS: 73610; 96372; 99283; J1885

== ENCOUNTER 2023-09-01 16:17 | Emergency (ER) | payer BC, MEDICAID ==
[~2023-09-01] VITALS: Ht 157.5 cm; Wt 45.5 kg
[2023-09-01 21:21] LABS: BASOPHILS # (AUTO) 0.1 X10'3 (0-0.2); BASOPHILS % (AUTO) 0.7 % (0-1); EOSINOPHILS % (AUTO) 0.2 % (0-6); HEMATOCRIT 27.2 % (35.0-45.0); HEMOGLOBIN 9.2 g/dl (12.0-16.0); LYMPHOCYTES # (AUTO) 0.8 X10'3 (1.1-4.8); LYMPHOCYTES % (AUTO) 9.2 % (21-51); MEAN CORPUSCULAR HEMOGLOBIN 30.7 PG (27.0-31.0); MEAN CORPUSCULAR HGB CONC 33.8 g/dL (33.0-36.5); MEAN CORPUSCULAR VOLUME 90.8 FL (78-98); MEAN PLATELET VOLUME 7.7 FL (7.4-10.4); MONOCYTES # (AUTO) 0.6 X10'3 (0-0.9); NEUTROPHILS # (AUTO) 7.3 X10'3 (1.8-7.7); NEUTROPHILS % (AUTO) 82.9 % (42-75); PLATELET COUNT 181 X10'3 (140-440); RED BLOOD COUNT 2.99 X10'6 (4.20-5.60); RED CELL DISTRIBUTION WIDTH 14.5 % (11.5-14.5); WHITE BLOOD COUNT 8.8 X10'3 (4.5-11.0)
[2023-09-01 21:30] LABS: BILIRUBIN,URINE SMALL (Neg); CLARITY,URINE SLIGHTLY CLOUDY (Clear); COLOR,URINE YELLOW (Yellow); GLUCOSE, URINE NEGATIVE (Neg); KETONES,URINE TRACE mg/dl (Neg); LEUKOCYTE ESTERASE ,URINE NEGATIVE (Neg); NITRITES, URINE NEGATIVE (Neg); OCCULT BLOOD,URINE NEGATIVE (Neg); PH,URINE >=9.0 (4.8-8.0); PROTEIN,URINE 100 mg/dl (Neg); UROBILINOGEN,URINE 0.2 E.U/dL (0.2-1.0)
[2023-09-01 21:31] LABS: UA COLLECTION TYPE CLN CATCH MIDSTREAM
[2023-09-01 21:37] LABS: ALANINE AMINOTRANSFERASE 121 U/L (12-78); ALBUMIN 3.4 G/DL (3.4-5.0); ALBUMIN/GLOBULIN RATIO 0.9 (1.1-1.5); ALKALINE PHOSPHATASE 95 IU/L (46-116); ANION GAP 12 (8-16); ASPARTATE AMINO TRANSFERASE 173 U/L (10-37); BILIRUBIN,TOTAL 0.5 MG/DL (0.1-1.0); BLOOD UREA NITROGEN 10 MG/DL (7-18); BUN/CREATININE RATIO 14.1 (10.0-20.0); CHLORIDE 100 MMOL/L (99-107); CREATININE 0.71 MG/DL (0.40-0.90); GLUCOSE 112 MG/DL (70-104); LIPASE 51 U/L (16-77); POTASSIUM 3.1 MMOL/L (3.5-5.1); SODIUM 139 MMOL/L (135-145); TOTAL CARBON DIOXIDE 27.2 MMOL/L (24-32); eCRCL 66 ML/MIN; eGFR 86 ML/MIN
[2023-09-01 21:51] LABS: CALCIUM CARBONATE CRYSTALS 4+ /HPF (NEGATIVE)
[2023-09-01 21:54] LABS: BACTERIA,URINE FEW /HPF (Neg); MUCUS STRANDS NONE SEEN /LPF (Neg); SQUAMOUS EPITHELIAL CELL,UR MODERATE /LPF (FEW); WBC,URINE 0-4 /HPF (0-4)
[2023-09-01 21:55] LABS: URINE AMPHETAMINE SCREEN NEGATIVE (Neg); URINE BARBITUATE SCREEN NEGATIVE (Neg); URINE BENZODIAZEPINES SCREEN NEGATIVE (Neg); URINE CANNABINOID SCREEN POSITIVE (Neg); URINE COCAINE SCREEN NEGATIVE (Neg); URINE METHADONE SCREEN NEGATIVE (Neg); URINE OPIATE SCREEN NEGATIVE (Neg); URINE PHENCYCLIDINE SCREEN NEGATIVE (Neg)
[2023-09-01 21:58] LABS: ETHANOL < 10 MG/DL (<10)
[2023-09-01 22:00] LABS: RBC,URINE 0-2 /HPF (0-2)
[2023-09-01] MEDS: ondansetron/PF 4mg/2ml inj IV ONE (22:41)
[2023-09-01] MEDS: LORazepam 2 mg/ml vial IV ONE (22:42)
[2023-09-01] MEDS: CefTRIAXone/D5W-Rocephin 1gm 50 ML IV ONE (22:42)
[2023-09-01] MEDS ORDERED: ONDA4TAB12 PO (22:55)
[2023-09-01] MEDS ORDERED: NITR100C6 PO (22:55)
[2023-09-01] MEDS ORDERED: LORA-268 PO (22:55)
[2023-09-02 00:12] VITALS: BP 139/70; PULSE 90; RESP 16; TEMP 98.6; O2SAT 97
== END 2023-09-02 00:14 | disposition home or self-care (01) ==
LOC: ER 16:17
DX: F41.9 Anxiety disorder, unspecified (principal); Z20.822 Contact with and (suspected) exposure to COVID-19; D64.9 Anemia, unspecified; K70.30 Alcoholic cirrhosis of liver without ascites; N39.0 Urinary tract infection, site not specified
CPT/HCPCS: 36415; 80053; 80305; 80320; 81001; 83690; 85025; 87502; 87503; 87811; 96361; 96374; 96375; 99284; J0696; J2060; J2405

== ENCOUNTER 2024-06-28 12:28 | Emergency (ER) | payer MEDICAID, OTHER ==
[~2024-06-28] VITALS: Ht 157.5 cm; Wt 41.8 kg
[~2024-06-28 12:28] MED LIST changes: -ALBU90AE2 INH; +ALBU90AE3 INH; +LORA-268 PO; +NITR100C6 PO; +ONDA-243 PO
[2024-06-28] MEDS: thiamine 100mg/ml 2ml inj. IV ONE (14:34)
[2024-06-28] MEDS: normal saline 1000ML IV soln IVB ONE ×2 (14:34→14:35)
[2024-06-28] MEDS: LORazepam 2 mg/ml vial IV ONE (14:34)
[2024-06-28] MEDS: magnesium sulf-water 2g/50mL 50 ML IV ONE (14:35)
[2024-06-28 14:42] LABS: BASOPHILS # (AUTO) 0.1 X10'3 (0-0.2); BASOPHILS % (AUTO) 0.8 % (0-1); EOSINOPHILS # (AUTO) 0.2 X10'3 (0-0.9); EOSINOPHILS % (AUTO) 1.6 % (0-6); HEMATOCRIT 30.5 % (35.0-45.0); HEMOGLOBIN 10.2 g/dl (12.0-16.0); LYMPHOCYTES # (AUTO) 2.3 X10'3 (1.1-4.8); LYMPHOCYTES % (AUTO) 19.5 % (21-51); MEAN CORPUSCULAR HEMOGLOBIN 29.8 PG (27.0-31.0); MEAN CORPUSCULAR HGB CONC 33.5 g/dL (33.0-36.5); MEAN CORPUSCULAR VOLUME 88.9 FL (78-98); MEAN PLATELET VOLUME 7.8 FL (7.4-10.4); MONOCYTES # (AUTO) 0.6 X10'3 (0-0.9); MONOCYTES % (AUTO) 4.9 % (2-12); NEUTROPHILS # (AUTO) 8.8 X10'3 (1.8-7.7); NEUTROPHILS % (AUTO) 73.2 % (42-75); PLATELET COUNT 173 X10'3 (140-440); RED BLOOD COUNT 3.43 X10'6 (4.20-5.60); RED CELL DISTRIBUTION WIDTH 15.5 % (11.5-14.5)
[2024-06-28 14:54] LABS: ALANINE AMINOTRANSFERASE 87 U/L (12-78); ALBUMIN 3.8 G/DL (3.4-5.0); ALBUMIN/GLOBULIN RATIO 1.2 (1.1-1.5); ALKALINE PHOSPHATASE 113 IU/L (46-116); ANION GAP 13 (8-16); ASPARTATE AMINO TRANSFERASE 180 U/L (10-37); BILIRUBIN,TOTAL 0.6 MG/DL (0.1-1.0); BLOOD UREA NITROGEN 4 MG/DL (7-18); BUN/CREATININE RATIO 4.5 (10.0-20.0); CHLORIDE 94 MMOL/L (99-107); CREATININE 0.89 MG/DL (0.40-0.90); GLUCOSE 91 MG/DL (70-104); MAGNESIUM 1.2 MG/DL (1.5-2.4); PHOSPHORUS 1.9 MG/DL (2.3-4.5); POTASSIUM 3.2 MMOL/L (3.5-5.1); SODIUM 135 MMOL/L (135-145); TOTAL CARBON DIOXIDE 27.9 MMOL/L (24-32); TOTAL PROTEIN 7.1 G/DL (6.4-8.2); eCRCL 48 ML/MIN; eGFR 66 ML/MIN
[2024-06-28] MEDS: potassium Cl 20 mEq SR tablet PO STA (15:49)
[2024-06-28] MEDS ORDERED: NALT50TA5 PO (16:42)
[2024-06-28] MEDS ORDERED: FLUO40CA10 PO (16:42)
[2024-06-28 17:27] VITALS: BP 125/78; PULSE 98; RESP 18; TEMP 98.3; O2SAT 98
== END 2024-06-28 17:30 | disposition home or self-care (01) ==
LOC: ER 12:28
DX: F41.9 Anxiety disorder, unspecified (principal); F10.139 Alcohol abuse with withdrawal, unspecified; E78.00 Pure hypercholesterolemia, unspecified; J45.909 Unspecified asthma, uncomplicated; F32.A Depression, unspecified
CPT/HCPCS: 36415; 80053; 83735; 84100; 85025; 96365; 96366; 96375; 99284; J2060; J3411; J7030; 96361